=== PATIENT | male | born 1990 | race Two or more races ===

== ENCOUNTER 2017-05-05 19:38 | Emergency (ER) | payer SELFPAY ==
[~2017-05-05] VITALS: Ht 160 cm; Wt 81.6 kg
[2017-05-05] MEDS ORDERED: NKM (19:49)
[2017-05-05] MEDS ORDERED: Lidocaine 1% MPF 10mg/ml 5ml INJ ONE (20:15)
[2017-05-05] MEDS ORDERED: Bacitracin Oint UD TOPIC ONE (20:15)
[2017-05-05] MEDS ORDERED: CEPHALEXIN500 MG ORAL (20:24)
[2017-05-05] MEDS ORDERED: TYLENOL EXTRA500 MG ORAL (20:24)
[2017-05-05 20:30] VITALS: BP 122/81
--- NOTE | 2017-05-05 22:08 | Emergency Room Report ---
History of Present Illness General Chief Complaint: Lower Extremity Injury Source: Patient Present Illness [facility] The patient is a 26-year-old male presenting for Toe pain for the past 2 days. He has had pain described as an 8/10 dull ache around the nail fold of his big toe. He states that he did stub his toe approximately one week prior. But the pain resolved at that time. He thinks he may have an ingrown toenail. Pain worse with touch. He denies any other symptoms including fever chills Allergies: Coded Allergies: IBUPROFEN (Verified Allergy, Unknown, 05/05/17) Patient History Past Medical History: see triage record Pertinent Family History: none Reviewed Nursing Documentation: PMH: Agreed, PSxH: Agreed Nursing Documentation-PMH Past Medical History: No Stated History Review of Systems All Other Systems: negative except mentioned in HPI Physical Exam Vital Signs Date Time Temp Pulse Resp B/P (MAP) Pulse Ox O2 Delivery O2 Flow Rate FiO2 05/05/17 19:45 98.2 68 16 125/81 98 Room Air Sp02 EP Interpretation: reviewed, normal General Appearance: no apparent distress, alert, GCS 15, non-toxic Head: normocephalic, atraumatic Eyes: bilateral eye normal inspection, bilateral eye PERRL Musculoskeletal: back normal, gait/station normal, normal range of motion, inflammation, tender - R 1st toe medial nail fold Neurologic: alert, oriented x3, responsive, motor strength/tone normal, sensory intact, speech normal Psychiatric: judgement/insight normal, memory normal, mood/affect normal, no suicidal/homicidal ideation Skin: other - erythema to R 1st medial nail fold Procedures Additional Procedure Procedure Narrative Partial toenail removal: Digital block was placed using 4mL of 1% lidocaine w/o epi. Area cleaned with betadine. Straight forceps and scissors used to remove and cut away medial portion of nail. Minimal bleeding controlled. Area again cleaned with NS and betadine. Bacitracin placed and wrapped with sterile dressing. Medical Decision Making PA Attestation Dr. Riggins is my supervising physician. Patient management was discussed with my supervising physician Diagnostic Impression: Primary Impression: Ingrown toenail Additional Impression: Paronychia ER Course The patient is a 26-year-old male presenting for Toe pain for the past 2 days. Differential diagnoses considered but not limited to: Paronychia, ingrown toenail, cellulitis, among others Physical exam: Afebrile. No apparent distress Right first toe: There is tenderness to palpation and some edema to the right first medial nail fold. Please see procedure note for partial toenail removal. Patient tolerated well During procedure, there was some white purulent discharge. The patient will be discharged with prescription for pain medication and Keflex. ER precautions are given Last Vital Signs Date Time Temp Pulse Resp B/P (MAP) Pulse Ox O2 Delivery O2 Flow Rate FiO2 05/05/17 20:30 98.2 74 16 122/81 98 Room Air Status: improved Disposition: HOME, SELF-CARE Condition: Improved Scripts Cephalexin* (KEFLEX*) 500 Mg Capsule 500 MG ORAL EVERY 12 HOURS, #14 CAP 0 Refills Prov: CHERYL WELCH 05/05/17 Acetaminophen* (TYLENOL EXTRA STRENGTH*) 500 Mg Tablet 500 MG ORAL Q8H Y for Prn Headache/Temp > 101, #30 TAB 0 Refills Prov: CHERYL WELCH 05/05/17 Referrals: NOT CHOSEN IPA/MD,REFERRING (PCP) Patient Instructions: Ingrown Toenail, Paronychia Additional Instructions: I discussed my findings with the patient. All questions and concerns have been answered. Treatment and medication compliance have been addressed. I advised the patient that they need to follow up with PMD in 3-5 days. Return to ED if symptoms worsen, new symptoms arise, or if needed for any reason. Patient verbalized understanding of discharge instructions. CHERYL WELCH May 05, 2017 22:08
== END 2017-05-05 20:30 | disposition home or self-care (01) ==
LOC: EMR 20:30
DX: L60.0 Ingrowing nail (principal); L03.031 Cellulitis of right toe; Z88.6 Allergy status to analgesic agent
CPT/HCPCS: 99283

== ENCOUNTER 2018-07-17 17:01 | Emergency (ER) | payer OTHER ==
[~2018-07-17] VITALS: Ht 162.6 cm; Wt 77.1 kg
[~2018-07-17 17:01] MED LIST: CEPHALEXIN500 MG ORAL; NKM; NORCO 5-325 TA1 EACH ORAL; TYLENOL EXTRA500 MG ORAL
[2018-07-17] MEDS ORDERED: TYLENOL EXTRA500 MG ORAL (17:35)
[2018-07-17] MEDS ORDERED: BACITRACIN-P28.35 GM TP (17:35)
--- NOTE | 2018-07-17 17:35 | Emergency Room Report ---
History of Present Illness General Chief Complaint: Wound Recheck/Suture Removal Source: Patient Present Illness HPI 27-year-old male patient presents the ER for wound check of abscess of left leg. Reports he had an abscess on his left leg that was drained a few days ago and this ER. Reports that he has been taking his antibiotics as instructed, states he is taking Keflex and doxycycline. Reports has improved in size and color. reports mild drainage one time. Denies fever, chest pain, shortness of breath. Denies vomiting. Denies other aggravating or relieving factors. Denies history of diabetes. Allergies: Coded Allergies: IBUPROFEN (Verified Allergy, Unknown, 05/05/17) Patient History Past Medical History: see triage record Reviewed Nursing Documentation: PMH: Agreed; PSxH: Agreed Nursing Documentation-PMH Past Medical History: No Stated History Review of Systems All Other Systems: negative except mentioned in HPI Physical Exam Vital Signs Date Time Temp Pulse Resp B/P (MAP) Pulse Ox O2 Delivery O2 Flow Rate FiO2 07/17/18 17:20 98.1 77 22 151/98 97 Room Air Sp02 EP Interpretation: reviewed, normal General Appearance: well appearing, no apparent distress, alert, GCS 15, non- toxic Head: normocephalic, atraumatic Eyes: bilateral eye normal inspection, bilateral eye PERRL ENT: hearing grossly normal, normal pharynx, no angioedema, normal voice, uvula midline, moist mucus membranes Neck: full range of motion Respiratory: lungs clear, normal breath sounds, no rhonchi, no respiratory distress, no accessory muscle use, no wheezing, speaking full sentences Cardiovascular #1: regular rate, rhythm, no edema Cardiovascular #2: 2+ dorsalis pedis (R), 2+ dorsalis pedis (L) Musculoskeletal: back normal, digits/nails normal, gait/station normal, normal range of motion, non-tender Psychiatric: mood/affect normal Skin: other - Healing abscess on left lower leg midshaft, open wound, no cause , no surrounding erythema, mild edema surrounding incision site Medical Decision Making PA Attestation Dr. Campbell is my supervising Physician whom patient management has been discussed with. Diagnostic Impression: Primary Impression: Encounter for wound re-check ER Course Pt. presents to the ED requesting wound check of abscess of leg. Ddx considered but are not limited to cellulitis, abscess, wound check, folliculitis. Vital signs: are WNL, pt. is afebrile ER COURSE: Wound redressed with sterile gauze. Bacitracin applied to wound. Allowed to drain. Follow-up with PCP or return to ER for repeat wound check in 2-3 days. ER precautions given, return to ER if new or worsening symptoms present including but not limited to fever, intractable vomiting, redness or swelling, increased pain. DISCHARGE: Rx provided for Bacitracn Patient instructed to continue with medications per initial ER provider instructions. At this time pt. is stable for d/c to home. Patient resting comfortatbly, in no acute distress, nontoxic appearing. Will provide printed patient care instructions and any necessary prescriptions. Care plan and follow up instructions have been discussed with the patient prior to discharge. Patient instructed to follow-up with primary care provider for further treatment and referral. Patient questions asked and answered. ER precautions given. Patient instructed to return to ER immediately for any new or worsening of symptoms including but not limited to fever, worsening of pain symptoms. - Please note that this Emergency Department Report was dictated using [employer] software, occasionally this can lead to erroneous entry secondary to interpretation by the dictation equipment. Last Vital Signs Date Time Temp Pulse Resp B/P (MAP) Pulse Ox O2 Delivery O2 Flow Rate FiO2 07/17/18 17:20 98.1 77 22 151/98 97 Room Air Status: improved Disposition: HOME, SELF-CARE Condition: Stable Scripts Acetaminophen* (TYLENOL EXTRA STRENGTH*) 500 Mg Tablet 500 MG ORAL Q8H PRN for Prn Headache/Temp > 101, #30 TAB 0 Refills Prov: Reno Mendez 07/17/18 Bacitracin/Polymyxin B Sulfate (BACITRACIN-POLYMYXIN OINTMENT) 28.35 Gm Oint...g. 1 APPLIC TP BID, #28 GM Prov: Reno Mendez 07/17/18 Patient Instructions: Wound Check Additional Instructions: Followup with primary care provider or return to ER in 2-3 days for wound check. Take Tylenol for pain and swelling. Keep clean and dry. Take medications as directed. Patient questions asked and answered. ER precautions given, patient instructed to return to ER immediately for any new or worsening of symptoms. Reno Mendez Jul 17, 2018 17:35
[2018-07-17 17:57] VITALS: BP_SYST 148; BP_SYST 151; BP_DIAS 92; BP_DIAS 98
== END 2018-07-17 17:57 | disposition home or self-care (01) ==
LOC: EMR 17:34
DX: L02.416 Cutaneous abscess of left lower limb (principal); Z88.6 Allergy status to analgesic agent
CPT/HCPCS: 99282